=== PATIENT | male | born 1995 ===

== ENCOUNTER 2017-12-21 05:45 | Emergency (ER) | payer MEDICAID ==
[2017-12-21] MEDS ORDERED: Sodium Chloride 0.9% 1,000 ML IV STA (06:27)
--- NOTE | 2017-12-21 07:02 | ED PDOC ---
HPI: Psych/Substance Abuse Time Seen by Provider: 12/21/17 06:00 Chief Complaint (Nursing): Chest Pain Chief Complaint (Provider): Chest Pain History Per: Patient History/Exam Limitations: no limitations Suicide/Self Injury Attempted (Context): None Modifying Factor(s): Marijuana Additional Complaint(s): 22 year old male presents to ED with complaints of chest pain and has no past medical history. Patient admits to eating 3 marijuana brownies and notes dizziness and weakness. PCP: Paul Past Medical History Reviewed: Historical Data, Nursing Documentation, Vital Signs Vital Signs: Last Vital Signs Temp 97.5 F L 12/21/17 05:56 Pulse 126 H 12/21/17 05:56 Resp 18 12/21/17 05:56 BP 153/88 H 12/21/17 05:56 Pulse Ox 99 12/21/17 05:56 - Medical History PMH: No Chronic Diseases - Surgical History Surgical History: Tonsillectomy - Family History Family History: States: Unknown Family Hx - Social History Drugs: Cannabis - Home Medications Home Medications: Ambulatory Orders Medication Instructions Recorded Amoxicillin 875 mg PO BID #20 tab 04/20/15 Ibuprofen [Motrin] 600 mg PO Q6H PRN #20 tab 04/20/15 Ofloxacin Otic 0.3% [Floxin 0.3% 10 drop OT DAILY #1 bottle 04/20/15 Otic Soln] Tramadol Hydrochloride [Tramadol] 50 mg PO Q6H PRN #10 tab 04/20/15 Amoxicillin/Clavulanate [Augmentin 1 tab PO BID #20 tab 08/08/15 875 MG-125 MG] Ibuprofen [Motrin] 600 mg PO Q6H PRN #20 tab 08/08/15 Sulfamethoxazole/Trimethopri 1 tab PO BID #20 tab 08/08/15 [Bactrim Ds 800 mg-160 mg] Ondansetron [Zofran] 4 mg PO Q8H PRN #5 tab 10/14/15 Naproxen [Naprosyn] 500 mg PO BID PRN #15 tablet 10/15/16 Nitrofurantoin Macrocrystals 100 mg PO BID #14 cap 10/15/16 [Macrobid] - Allergies Allergies/Adverse Reactions: Allergies Allergy/AdvReac Type Severity Reaction Status Date / Time No Known Allergies Allergy Verified 12/21/17 05:56 Review of Systems ROS Statement: Except As Marked, All Systems Reviewed And Found Negative Constitutional: Positive for: Weakness Cardiovascular: Positive for: Chest Pain Neurological: Positive for: Dizziness Physical Exam - Reviewed Nursing Documentation Reviewed: Yes Vital Signs Reviewed: Yes - Physical Exam Appears: Positive for: Non-toxic, No Acute Distress. Negative for: Uncomfortable Skin: Positive for: Normal Color, Warm, Dry Eye Exam: Positive for: Normal appearance Neck: Positive for: Normal, Painless ROM, Supple Cardiovascular/Chest: Positive for: Regular Rate, Rhythm. Negative for: Murmur Respiratory: Positive for: Normal Breath Sounds. Negative for: Respiratory Distress Gastrointestinal/Abdominal: Positive for: Normal Exam, Soft. Negative for: Tenderness Extremity: Positive for: Normal ROM. Negative for: Deformity Neurologic/Psych: Positive for: Alert, Oriented. Negative for: Motor/Sensory Deficits - Laboratory Results Result Diagrams: 12/21/17 06:44 12/21/17 06:44 - ECG ECG Rhythm: Positive for: Sinus Tachycardia Rate: 116 O2 Sat by Pulse Oximetry: 99 (RA) Pulse Ox Interpretation: Normal Medical Decision Making Medical Decision Makin Initial impression: drug-induced chest pain Initial plan: * Labs * Trop I * NS IV 0700 Patient signed out to Dr. Castelan pending labs, sobriety, and re-evaluation ( tachycardia to be resolved) Scribe Attestation: Documented by Jennifer Corrigan acting as a scribe for Suzi Leggett MD. Scribe Attestation: All medical record entries made by the Scribe were at my direction and personally dictated by me. I have reviewed the chart and agree that the record accurately reflects my personal performance of the history, physical exam, medical decision making, and the department course for this patient. I have also personally directed, reviewed, and agree with the discharge instructions and disposition. Disposition - Clinical Impression Clinical Impression: Atypical chest pain, Marijuana abuse - Patient ED Disposition Is Patient to be Admitted: Transfer of Care - Disposition Referrals: Gloria Miller MD [Family Provider] - Disposition: Transfer of Care Disposition Time: 07:00 Condition: STABLE Instructions: Chest Pain, Marijuana Use and Addiction Forms: [employer] (Brazilian) Patient Signed Over To: Stacy Castelan Handoff Comments: pending labs, sobriety, and re-evaluation
[2017-12-21 07:19] LABS: ALB/GLOB RATIO 1.2 (1.0-2.1); ALBUMIN 4.2 g/dL (3.5-5.0); ALT/SGPT 85 U/L (21-72); AST/SGOT 31 U/L (17-59); BLOOD UREA NITROGEN 18 mg/dl (9-20); CALCIUM 9.4 mg/dL (8.4-10.2); GFR AFRICAN-AMERICAN > 60; GFR NON-AFRICAN AMERICAN > 60
--- NOTE | 2017-12-21 07:20 | ED PDOC ---
- Laboratory Results Result Diagrams: 12/21/17 06:44 12/21/17 06:44 - ECG O2 Sat by Pulse Oximetry: 99 (RA) Medical Decision Making Medical Decision Makin:00 -Patient was endorsed to me by Dr. Leggett, pending labs and reevaluation. 09:56 -Patient feels better, ate meal. Disposition - Clinical Impression Clinical Impression: Atypical chest pain, Marijuana abuse - Disposition Referrals: Gloria Miller MD [Family Provider] - Condition: IMPROVED Instructions: Marijuana Use and Addiction, Chest Pain Forms: [facility] (Welsh)
[2017-12-21 07:31] LABS: BASO % 0.3 % (0.0-2.0); EOS # 0.2 K/uL (0.0-0.7); EOS % 1.8 % (0.0-4.0); HEMOGLOBIN 14.3 g/dL (12.0-18.0); LYMPH % 8.2 % (20.0-40.0); MEAN CORPUSCULAR HEMOGLOBIN 28.3 pg (27.0-31.0); MEAN CORPUSCULAR HGB CONC 33.8 g/dL (33.0-37.0); MEAN PLATELET VOLUME 8.5 fl (7.2-11.7); MONO # 0.9 K/uL (0.0-0.8); MONO % 7.2 % (0.0-10.0); NEUT # 10.3 K/uL (1.8-7.0); NEUT % 82.5 % (50.0-75.0); NRBC % 0.1 % (0.0-0.0); PLATELET COUNT 210 K/uL (130-400); RBC 5.07 Mil/uL (4.40-5.90); RED CELL DISTRIBUTION WIDTH 13.1 % (11.5-14.5)
[2017-12-21 07:40] LABS: MEAN CELL VOLUME 83.6 fl (80.0-94.0); WHITE BLOOD COUNT 12.4 K/uL (4.8-10.8)
[2017-12-21 08:59] VITALS: RESP 14
[2017-12-21 10:16] VITALS: BP 110/69; TEMP 98
[2017-12-21 11:03] LABS: EOSINOPHIL 1 % (0-7); LYMPHOCYTE 9 % (20-50); MONOCYTE 5 % (0-10); NEUTROPHIL 85 % (42-75); PLATELET ESTIMATE NORMAL (NORMAL); TOTAL CELLS COUNTED 100
[2017-12-22 01:24] VITALS: PULSE 116; O2SAT 99
== END 2017-12-21 10:37 | disposition home or self-care (01) ==
LOC: H.ER 05:45
DX: R07.89 Other chest pain (principal); F12.10 Cannabis abuse, uncomplicated
CPT/HCPCS: 80053; 84484; 85025; 99285; J7040

== ENCOUNTER 2018-05-15 18:35 | Emergency (ER) | payer MEDICAID ==
[2018-05-15 19:07] VITALS: BP 111/74; PULSE 96; RESP 16; TEMP 98.9; O2SAT 98
--- NOTE | 2018-05-15 19:41 | ED PDOC ---
HPI: CCC, URI, Sore Throat Time Seen by Provider: 05/15/18 19:31 Chief Complaint (Nursing): Flu-like Symptoms Chief Complaint (Provider): Flu-like symptoms History Per: Patient Onset/Duration Of Symptoms: Days (x1) Location Of Pain: Throat Associated Symptoms: Fever (subjective), Sore Throat, Cough, Other (body aches) Additional Complaint(s): Pavel Carmona is a 22 year old male, with no significant past medical history, who presents to the emergency department complaining of a subjective fever, body aches, sore throat, cough and congestion onset for x1 day. Patient took NyQuil and DayQuil yesterday but he did not take anything for fever today. He denies any other medical complaints. PMD: Gloria Miller Past Medical History Reviewed: Historical Data, Nursing Documentation, Vital Signs Vital Signs: Last Vital Signs Temp 98.9 F 05/15/18 19:05 Pulse 96 H 05/15/18 19:05 Resp 16 05/15/18 19:05 BP 111/74 05/15/18 19:05 Pulse Ox 98 05/15/18 19:47 - Medical History PMH: No Chronic Diseases - Surgical History Surgical History: Tonsillectomy - Family History Family History: States: Unknown Family Hx - Social History Current smoker - smoking cessation education provided: No Alcohol: None Drugs: Denies - Home Medications Home Medications: Ambulatory Orders Medication Instructions Recorded Amoxicillin 875 mg PO BID #20 tab 04/20/15 Ibuprofen [Motrin] 600 mg PO Q6H PRN #20 tab 04/20/15 Ofloxacin Otic 0.3% [Floxin 0.3% 10 drop OT DAILY #1 bottle 04/20/15 Otic Soln] Tramadol Hydrochloride [Tramadol] 50 mg PO Q6H PRN #10 tab 04/20/15 Amoxicillin/Clavulanate [Augmentin 1 tab PO BID #20 tab 08/08/15 875 MG-125 MG] Ibuprofen [Motrin] 600 mg PO Q6H PRN #20 tab 08/08/15 Sulfamethoxazole/Trimethopri 1 tab PO BID #20 tab 08/08/15 [Bactrim Ds 800 mg-160 mg] Ondansetron [Zofran] 4 mg PO Q8H PRN #5 tab 10/14/15 Naproxen [Naprosyn] 500 mg PO BID PRN #15 tablet 10/15/16 Nitrofurantoin Macrocrystals 100 mg PO BID #14 cap 10/15/16 [Macrobid] Azithromycin [Zithromax] 250 mg PO DAILY #6 tab 05/15/18 Benzonatate 200 mg PO TID PRN #20 capsule 05/15/18 Ibuprofen [Motrin] 600 mg PO Q6 PRN #20 tab 05/15/18 - Allergies Allergies/Adverse Reactions: Allergies Allergy/AdvReac Type Severity Reaction Status Date / Time No Known Allergies Allergy Verified 05/15/18 19:05 Review of Systems ROS Statement: Except As Marked, All Systems Reviewed And Found Negative Constitutional: Positive for: Fever (subjective), Other (body aches) ENT: Positive for: Nose Congestion, Throat Pain Respiratory: Positive for: Cough Physical Exam - Reviewed Nursing Documentation Reviewed: Yes Vital Signs Reviewed: Yes - Physical Exam Appears: Positive for: No Acute Distress Head Exam: Positive for: ATRAUMATIC, NORMOCEPHALIC Skin: Positive for: Normal Color, Warm, Dry Eye Exam: Positive for: Normal appearance ENT: Positive for: Pharyngeal Erythema (mild but no exudate). Negative for: Tonsillar Exudate Neck: Positive for: Painless ROM, Supple Cardiovascular/Chest: Positive for: Regular Rate, Rhythm. Negative for: Murmur Respiratory: Positive for: Normal Breath Sounds. Negative for: Respiratory Distress Extremity: Positive for: Normal ROM (upper and lower extremities). Negative for : Deformity Neurologic/Psych: Positive for: Alert, Oriented - ECG O2 Sat by Pulse Oximetry: 98 (RA) Pulse Ox Interpretation: Normal Medical Decision Making Medical Decision Making: Time: 19:31 Initial Impression: URI Initial Plan: --Motrin 600 mg PO --Reevaluation Upon provider evaluation patient is medically stable, and requires no further treatment in the ED at this time. Patient will be discharged home with Rx for Zithromax & Tesberenice Toscano. Counseling was provided and all questions were answered regarding diagnosis. There is agreement to discharge plan. Return if symptoms persist or worsen. Scribe Attestation: Documented by Saran Shaffer, acting as a scribe for Jennifer Santacruz PA-C Provider Scribe Attestation: All medical record entries made by the Scribe were at my direction and personally dictated by me. I have reviewed the chart and agree that the record accurately reflects my personal performance of the history, physical exam, medical decision making, and the department course for this patient. I have also personally directed, reviewed, and agree with the discharge instructions and disposition. Disposition - Clinical Impression Clinical Impression: Upper respiratory infection - Patient ED Disposition Is Patient to be Admitted: No Counseled Patient/Family Regarding: Diagnosis, Need For Followup, Rx Given - Disposition Referrals: Tatiana Gilbert [Medical Doctor] - Disposition: Routine/Home Disposition Time: 20:22 Condition: STABLE Additional Instructions: Take prescription meds as directed. Rest and drink plenty of fluids. Follow-up with primary doctor in 2-3 days. Prescriptions: Azithromycin [Zithromax] 250 mg PO DAILY #6 tab Benzonatate 200 mg PO TID PRN #20 capsule PRN Reason: Cough Ibuprofen [Motrin] 600 mg PO Q6 PRN #20 tab PRN Reason: Pain, Moderate (4-7) Instructions: Bacterial Upper Respiratory Infection, Adult Forms: [employer] (Czech)
== END 2018-05-15 20:47 | disposition home or self-care (01) ==
LOC: H.ER 18:35
DX: J06.9 Acute upper respiratory infection, unspecified (principal)

== ENCOUNTER 2018-08-30 09:30 | Emergency (ER) | payer MEDICAID ==
[2018-08-30 09:33] VITALS: BMI 29.9
--- NOTE | 2018-08-30 10:18 | ED PDOC ---
HPI: CCC, URI, Sore Throat Time Seen by Provider: 08/30/18 09:40 Chief Complaint (Nursing): Cough, Cold, Congestion Chief Complaint (Provider): Cough History Per: Patient History/Exam Limitations: no limitations Additional Complaint(s): Pt. with bodyaches Thurs. Was getting better then developed cough, congestion, runny nose with bodyaches yesterday so came to the ER. No chest pain, dyspnea, weakness, headaches, dizziness, fever. Past Medical History Reviewed: Nursing Documentation, Vital Signs Vital Signs: Last Vital Signs Temp 97.8 F 08/30/18 09:33 Pulse 76 08/30/18 09:33 Resp 17 08/30/18 09:33 BP 136/84 08/30/18 09:33 Pulse Ox 98 08/30/18 09:33 - Medical History PMH: No Chronic Diseases - Surgical History Surgical History: Tonsillectomy - Family History Family History: States: Unknown Family Hx - Living Arrangements Living Arrangements: With Family - Home Medications Home Medications: Ambulatory Orders Medication Instructions Recorded Amoxicillin 875 mg PO BID #20 tab 04/20/15 Ibuprofen [Motrin] 600 mg PO Q6H PRN #20 tab 04/20/15 Ofloxacin Otic 0.3% [Floxin 0.3% 10 drop OT DAILY #1 bottle 04/20/15 Otic Soln] Tramadol Hydrochloride [Tramadol] 50 mg PO Q6H PRN #10 tab 04/20/15 Amoxicillin/Clavulanate [Augmentin 1 tab PO BID #20 tab 08/08/15 875 MG-125 MG] Ibuprofen [Motrin] 600 mg PO Q6H PRN #20 tab 08/08/15 Sulfamethoxazole/Trimethopri 1 tab PO BID #20 tab 08/08/15 [Bactrim Ds 800 mg-160 mg] Ondansetron [Zofran] 4 mg PO Q8H PRN #5 tab 10/14/15 Naproxen [Naprosyn] 500 mg PO BID PRN #15 tablet 10/15/16 Nitrofurantoin Macrocrystals 100 mg PO BID #14 cap 10/15/16 [Macrobid] Azithromycin [Zithromax] 250 mg PO DAILY #6 tab 05/15/18 Benzonatate 200 mg PO TID PRN #20 capsule 05/15/18 Ibuprofen [Motrin] 600 mg PO Q6 PRN #20 tab 05/15/18 Benzonatate [Tessalon Perles] 100 mg PO BID PRN 5 Days sgl 08/30/18 Ibuprofen [Motrin] 600 mg PO TID 7 Days tab 08/30/18 - Allergies Allergies/Adverse Reactions: Allergies Allergy/AdvReac Type Severity Reaction Status Date / Time No Known Allergies Allergy Verified 05/15/18 19:05 Review of Systems ROS Statement: Except As Marked, All Systems Reviewed And Found Negative ENT: Positive for: Nose Pain, Nose Discharge, Nose Congestion Respiratory: Positive for: Cough Musculoskeletal: Positive for: Other (bodyaches) Physical Exam - Reviewed Nursing Documentation Reviewed: Yes Vital Signs Reviewed: Yes - Physical Exam Appears: Positive for: Non-toxic, No Acute Distress Head Exam: Positive for: ATRAUMATIC, NORMAL INSPECTION, NORMOCEPHALIC Skin: Positive for: Normal Color, Warm, DRY Eye Exam: Positive for: EOMI, Normal appearance, PERRL ENT: Positive for: Nasal Congestion. Negative for: Pharyngeal Erythema, Tonsillar Exudate Neck: Positive for: Normal, Painless ROM, Supple Cardiovascular/Chest: Positive for: Regular Rate, Rhythm Respiratory: Positive for: CNT, Normal Breath Sounds Gastrointestinal/Abdominal: Positive for: Normal Exam, Soft. Negative for: Tenderness Back: Positive for: Normal Inspection. 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 Negative for: Motor/Sensory Deficits, Aphasia - Laboratory Results Interpretation Of Abn Labs: no acute - ECG O2 Sat by Pulse Oximetry: 98 Pulse Ox Interpretation: Normal - Progress ED Course And Treament: 1206: Stable. AAOx3. Pain free. Tolerated PO. Fu with pcp. Disposition - Clinical Impression Clinical Impression: Upper respiratory infection - Patient ED Disposition Is Patient to be Admitted: No Counseled Patient/Family Regarding: Studies Performed, Diagnosis, Need For Followup, Rx Given - Disposition Referrals: [facility] [Outside] - 09/01/18 Disposition: Routine/Home Disposition Time: 12:09 Condition: STABLE Additional Instructions: Return if not better in 3 days. Prescriptions: Benzonatate [Tessalon Perles] 100 mg PO BID PRN 5 Days sgl PRN Reason: Cough Ibuprofen [Motrin] 600 mg PO TID 7 Days tab Instructions: Viral Upper Respiratory Infection, Adult (DC) Forms: [employer] [facility] (Sudanese), [facility] ED School/Work Excuse
[2018-08-30 12:28] VITALS: BP 125/80; PULSE 75; RESP 16; TEMP 98.1; O2SAT 99
== END 2018-08-30 12:27 | disposition home or self-care (01) ==
LOC: H.ER 09:30
DX: J06.9 Acute upper respiratory infection, unspecified (principal)